=== PATIENT | male | born 1955 | race Caucasian/White ===

== ENCOUNTER 2020-12-20 05:27 | Observation (INO) ==
--- NOTE | 2020-12-05 11:19 | PAT Medication Instructions ---
Medication Instructions Date of Service December 05, 2020 Home Medications Medication Instructions Recorded tramadol 50 mg tablet 50 mg PO Q6H PRN #30 tab 12/01/20 tramadol 50 mg tablet 50 mg PO Q6H PRN ascorbic acid (vitamin C) 1,000 mg tablet (Vitamin C) 1 g PO QAM aspirin 81 mg tablet 81 mg PO QAM atorvastatin 80 mg tablet 80 mg PO HS cholecalciferol (vitamin D3) 50 mcg (2,000 unit) tablet (Vitamin D3) 50 mcg PO QAM meloxicam 15 mg tablet 15 mg PO QPM PRN multivitamin 1 tab PO QAM nitroglycerin 0.4 mg sublingual tablet 0.4 mg SUBLINGUAL UD PRN omeprazole 20 mg tablet,delayed release 20 mg PO QAM Continue as directed nitroglycerin 0.4 mg sublingual tablet 0.4 mg SUBLINGUAL UD PRN (if needed) ASK your surgeon for instructions meloxicam 15 mg tablet 15 mg PO QPM PRN DO NOT take the morning of surgery ascorbic acid (vitamin C) 1,000 mg tablet (Vitamin C) 1 g PO QAM cholecalciferol (vitamin D3) 50 mcg (2,000 unit) tablet (Vitamin D3) 50 mcg PO QAM multivitamin 1 tab PO QAM Take morning of surgery With a small sip of water, OTHERWISE NOTHING TO EAT OR DRINK AFTER MIDNIGHT: tramadol 50 mg tablet 50 mg PO Q6H PRN (okay to take up to 4 hours prior to surgery if needed) aspirin 81 mg tablet 81 mg PO QAM (continue as normal unless told otherwise by surgeon) omeprazole 20 mg tablet,delayed release 20 mg PO QAM Take evening before surgery tramadol 50 mg tablet 50 mg PO Q6H PRN (if needed) atorvastatin 80 mg tablet 80 mg PO HS Other Notes If you have any questions please call us at [phone] or [phone] or [phone] or [phone]
--- NOTE | 2020-12-09 12:06 | Anesthesiology Consultation ---
Date of Service December 09, 2020 Assessment & Plan (1) Encounter for pre-operative examination: COVID screening: Per assessment on 12/09: Travel screen negative, no known COVID- 19 positive contacts or current COVID-19 related symptoms. Patient vaccinated. Surgeon arranging preop COVID testing. Awaiting results. Chart Review Chart Review: Acceptable Risk for Surgery (pending most recent cardiology office visit note) and Patient seen in Pre Admission Testing Teaching & Discussion Pre-Anesthesia Teaching/Discussion Notes: Instructed NPO after midnight before surgery,except medications with 15 cc of water. Medication instructions provided according to the PAT guidelines. History Surgery Operation Date: 12/20/20 10:40 Proposed Procedures p Right Total Hip Arthroplasty - Venkata Holcomb MD Height/Weight Height: 5 ft 10 in Weight: 99.5 kg Allergies Allergy/AdvReac Type Severity Reaction Status Date / Time No Known Allergies Allergy Verified 12/05/20 10:20 Medications Home Medications Medication Instructions Recorded Confirmed Last Taken tramadol 50 mg tablet 50 mg PO Q6H PRN #30 tab 12/01/20 12/05/20 Unknown ascorbic acid (vitamin C) 1,000 mg 1 g PO QAM 12/05/20 12/05/20 Unknown tablet (Vitamin C) aspirin 81 mg tablet 81 mg PO QAM 12/05/20 12/05/20 Unknown atorvastatin 80 mg tablet 80 mg PO HS 12/05/20 12/05/20 Unknown cholecalciferol (vitamin D3) 50 50 mcg PO QAM 12/05/20 12/05/20 Unknown mcg (2,000 unit) tablet (Vitamin D3) meloxicam 15 mg tablet 15 mg PO QPM PRN 12/05/20 12/05/20 Unknown multivitamin 1 tab PO QAM 12/05/20 12/05/20 Unknown nitroglycerin 0.4 mg sublingual 0.4 mg SUBLINGUAL UD PRN 12/05/20 12/05/20 Unknown tablet omeprazole 20 mg tablet,delayed 20 mg PO QAM 12/05/20 12/05/20 Unknown release Past Medical History Medical History BPH (benign prostatic hyperplasia) CAD (coronary artery disease) 3 stents total (LAD x2, diagonal x1) ~2012 Degenerative joint disease of right hip GERD (gastroesophageal reflux disease) Controlled Hyperlipidemia Kidney stones Osteoarthritis Exercise / Class Metabolic Activity II 4-5 Yardwork/Stairs/Walk up hill (one FS (no CP, no SOB)) Past Family History Family History Other No family history of adverse response to anesthesia Past Surgical History Surgical History H/O hemorrhoidectomy History of arthroplasty of left hip History of cardiac cath History of colonoscopy History of heart artery stent x3 stents total (LAD x2, diagonal x1) ~2012 Hx of umbilical hernia repair S/P T&A (status post tonsillectomy and adenoidectomy) S/P trigger finger release right middle finger & left ring finger S/P TURP Past Anesthesia History No Hx of Anesthesia Complications and No Family Hx of Anesthesia Complications History of PONV No Hx of PONV and No Hx of Motion Sickness Social History Smoking Status: Never smoker Do You Dip or Chew Tobacco: No Hx Alcohol Use: Yes alcohol intake frequency: a few times a month Hx Substance Use: No substance use type: does not use Review of Systems Patient denies chest pain, shortness of breath, dyspnea on exertion, reflux, cough, wheezing, palpitations. Physical Exam Vital Signs VITALS BP 126/81 P 64 TEMP 98.4 SP02 95%RA RESP 18 PHYSICAL Full cervical extension range of motion. Full TMJ range of motion. TMD 4 finger breaths Mallampati Score 3 Dentition: intact, + gold onlays, + veneers (including bottom front) Lungs: clear throughout to auscultation Cardiac: regular rate and rhythm, no murmurs noted Spine: normal Carotid arteries: negative bruit Extremities: no edema Lab Results Anesthesia Preop Results Results Anesthesia Widget: WBC 10.29 K/uL (4.8-10.8) 12/09/20 Hgb 14.9 g/dL (14.0-18.0) 12/09/20 Hct 43.2 % (42-52) 12/09/20 Plt 283 K/uL (130-400) 12/09/20 Na 141 mmol/L (136-145) 12/09/20 K 3.9 mmol/L (3.5-5.1) 12/09/20 Cl 108 mmol/L (98-107) H 12/09/20 CO2 26 mmol/L (21-32) 12/09/20 BUN 10 mg/dl (7-18) 12/09/20 Creat 0.65 mg/dl (0.6-1.4) 12/09/20 Glucose Level 91 mg/dl (70-99) 12/09/20 PT 10.9 Seconds (9.0-12.0) 12/09/20 PTT 27.6 Seconds (21.0-31.0) 12/09/20 INR 1.1 (0.9-1.1) 12/09/20 Blood Type O Positive 12/09/20 Antibody Screen NEGATIVE 12/09/20 Testing Electrocardiogram Date: 12/09/20 NSR at 64bpm. unconfirmed report. Chest X-Ray Date: 12/09/20 Findings: + NAD Echocardiogram Date: 09/19/20 EF 55 to 60%. Grade 1 diastolic dysfunction. Thickened aortic/mitral valve. Borderline LVH. No significant valvular disease.
[2020-12-20] MEDS ORDERED: Scopolamine 1 MG TDSY TD SCH (06:00)
[2020-12-20] MEDS ORDERED: ACETAMINOPHEN 500 MG TAB PO SCH (06:00)
[2020-12-20] MEDS ORDERED: ceFAZolin 2000MG 2,000 MG/15 ML SYR IV SCH (06:00)
[2020-12-20] MEDS ORDERED: LR 500ML BOLUS, THEN 15ML/HR IV SCH (06:00)
[2020-12-20] MEDS ORDERED: METOCLOPRAMIDE HCL 10 MG TABLET PO SCH (06:00)
[2020-12-20] MEDS ORDERED: LR 60ML/HR IV SCH (06:00)
[2020-12-20] MEDS ORDERED: GABAPENTIN 300 MG CAP PO SCH (06:00)
[2020-12-20] MEDS ORDERED: FAMOTIDINE 20 MG TAB PO SCH (06:00)
[2020-12-20] MEDS ORDERED: TRANEXAMIC ACID 1,000 MG **IV Pre-op IV SCH (06:00)
[2020-12-20] MEDS ORDERED: BUPIVACAINE 0.5 % 5 MG/1 ML PF 10ML VIAL ONE (06:23)
[2020-12-20] MEDS ORDERED: BUPIVACAINE 0.5 % 5 MG/1 ML MPF 30ML VIAL ONE (06:34)
[2020-12-20] MEDS ORDERED: EPINEPHrine INJ 1 MG/ML AMP ONE (06:34)
[2020-12-20] MEDS ORDERED: fentaNYL citrate 100 MCG/2 ML VIAL ONE (06:37)
[2020-12-20] MEDS ORDERED: MIDAZOLAM HCL 1 MG/ML 2ML VIAL ONE ×2 (06:37→07:16)
[2020-12-20] MEDS ORDERED: MoRPHine SULFATE PF 1 MG/ML 10 ML AMP/VIAL ONE (06:44)
--- NOTE | 2020-12-20 06:53 | History & Physical Bridge Note ---
Date of Service December 20, 2020 History & Physical Bridge Note I have examined the patient, reviewed the History & Physical and in the interval since the performance of the History & Physical I have noted the following changes of clinical significance: no changes noted
[2020-12-20] MEDS ORDERED: ePHEDrine sulfate 50 MG/ML AMP IV PRN ×2 (06:54→07:01)
[2020-12-20] MEDS ORDERED: fentaNYL citrate 100 MCG/2 ML VIAL IV PRN (06:54)
[2020-12-20] MEDS ORDERED: ATROPINE SULFATE 0.1 MG/ML 10ML SYR IV PRN (06:54)
[2020-12-20] MEDS ORDERED: HYDROmorphone INJ 2 MG/ML SYR/VIAL IV PRN (06:54)
[2020-12-20] MEDS ORDERED: ONDANSETRON INJ 2 MG/ML 2 ML VIAL IV PRN ×2 (06:54→07:01)
[2020-12-20] MEDS ORDERED: MoRPHine SULFATE 2 MG/ML CARP IV PRN (07:01)
[2020-12-20] MEDS ORDERED: MoRPHine SULFATE PF 1 MG/ML 10 ML AMP/VIAL INT SPINAL ONE (07:01)
[2020-12-20] MEDS ORDERED: NALBUPHINE HCL INJ 10 MG/ML AMP IV PRN (07:01)
[2020-12-20] MEDS ORDERED: NALOXONE HCL 1 MG in SODIUM CHLORIDE 0.9% 1000ML 1,000 ML IV PRN (07:01)
[2020-12-20] MEDS ORDERED: LACTATED RINGER'S 500 ML IV PRN (07:01)
[2020-12-20] MEDS ORDERED: diphenhydrAMINE 50 MG/ML VIAL IV PRN (07:01)
[2020-12-20] MEDS ORDERED: NALOXONE HCL 0.08 MG in SYRINGE 1.8 ML IV PRN (07:01)
[2020-12-20] MEDS ORDERED: NALOXONE HCL 0.4 MG/1 ML VIAL/CARP IV PRN (07:01)
[2020-12-20] MEDS ORDERED: ONDANSETRON INJ 2 MG/ML 2 ML VIAL ONE (07:13)
[2020-12-20] MEDS ORDERED: PROPOFOL IV EMULSION 10 MG/ML 20 ML VIAL IV ONE (07:13)
[2020-12-20] MEDS ORDERED: LIDOCAINE 2% 2 ML VIAL/AMP(20MG/ML) INFIL ONE (07:13)
[2020-12-20] MEDS ORDERED: SODIUM CHLORIDE 0.9% 1000ML 1,000 ML IV SCH (07:15)
[2020-12-20] MEDS ORDERED: NO NARCOTICS OR SEDATIVES SCH (07:15)
[2020-12-20] MEDS ORDERED: PHENYLEPHRINE 100MCG/ML 5ML SYR ONE (08:30)
--- NOTE | 2020-12-20 08:51 | Operative Report ---
Post Operative Report Pre & Post Diagnosis Operation Date: 12/20/20 07:00 Pre-Op Diagnosis: Right Hip Advanced Degenerative Joint Disease Post-Op Diagnosis: Right Hip Advanced Degenerative Joint Disease I identified the patient and participated in the time-out.: Yes Procedure Operation Date: 12/20/20 07:00 Actual Procedures p Right Total Hip Arthroplasty--Uncemented(Right) - Venkata Holcomb MD Surgeon Venkata Holcomb MD Candle Cutter HARRIS Fairbanks Estimated Blood Loss 200 Findings Consistent with Post-Op Diagnosis Operative findings revealed fairly advanced focal right hip DJD. He did have some grade 4 disease of the femoral head. They had a moderate-sized joint effusion. A very valgus angle to his femoral neck with some underlying dysplasia along with some increased anteversion of the femoral neck about 30 degrees. Fluids 1100 cc Specimens Right femoral head sent for pathology. Drains None Anesthesia Type Spinal MAC Complications none Disposition Accompanied Patient To Recovery: Yes Indications Patient is a 65-year-old gentleman has had about a 7-month history of progressively increasing right hip pain but is become more debilitating over time. He had similar episode five or 6 years ago which was eventually led to a left hip replacement. He been through extensive conservative treatment occ luding multiple different medicines as well as intra-articular hip joint injection which helped him for about a week or so. X-ray showed fairly mild arthritis but MRI was positive for a significant bone marrow edema and progression of his hip arthritis over time. He had edema on both sides of the joint. Patient failed conservative measures and would like to proceed with total hip arthroplasty. We did have him evaluated by our sports medicine hip arthroscopist and he didn't think there was any chance that he would help him with hip arthroscopy. Description of Procedure Operative implants consist of: 1. Biomet G7 size 54 mm acetabular shell. 2. 6.5 cancellous acetabular screws 135 mm length by 25 mm length. 3. [place] hole senior research fellow. 4. Highly cross-linked polyethylene liner with a 54 mm outer diameter, 36 mm inner diameter. 5. Depuy Corail size nine short neck 125 degree angle femoral stem. 6. +5/36 mm ceramic articular ball. The patient was taken to the operating, identified, placed on the operating table supine position but all contractors were properly padded. IV antibiotics tried by anesthesia team. A spinal anesthetic been implemented in the holding area. Esquivel catheter was placed in sterile fashion. The patient then placed in the left lateral decubitus position. Axillary roll was placed. A Stulberg hip positioner was used for positioning. The right hip and leg were then prepped and draped in usual sterile fashion. A posterior lateral approach to the right hip was then performed to look curvilinear incision centered over the greater trochanter. Sharp dissection was carried through subcutaneous this down to the IT band gluteal fascia the IT band gluteal fascia incised longitudinally in line with skin incision. The underlying greater bursa was excised. The piriformis and external rotators were then tagged and taken off the posterior aspect hip joint capsule. Great care was taken throughout the procedure protect the sciatic nerve at all times. Posterior capsulotomy was then performed leaving a flap for later repair. Hip was internally rotated and dislocated. The hip was then assessed and cleaned of all soft tissues. The femoral neck osteotomy cut was then made with Final Cut about 15 mm above the lesser trochanter. He did have quite a valgus angle to his femoral neck with increased femoral anteversion. The femoral head was removed and sent for pathology. The femur was retracted anteriorly. Attention drawn the acetabulum. The acetabular labrum was excised. Was very hypertrophied and thickened. The pulmonary fat was excised. Sequential reaming the acetabular was then performed beginning with a size 43 and progressing up to 53. I did reamed a little bit with a 54 reamer and then placed a 54 mm cup in about 40 degrees lateral opening and 20 degrees of anteversion. It was fixed with two 6.5 cancellous acetabular screws. Trial liner was placed. Small small anterior osteophytes removed. Attention drawn the femur. The proximal femur was entered with a cookie-cutter followed by canal finder. Then broached to a size 8 broach and progressing up to nine. He had a very good cancellous bone envelope and we got good fit at nine. I elected not to broach further due to his underlying dysplasia. We then trialed the hip. We trialed different neck options and I elected to use the 125 angle short neck as it provided optimal stability, appropriate soft tissue tension and appropriate leg lengths. Attention drawn to place the permanent components. Nupathe all trial components removed. An apex hole senior research fellow was placed. Highly cross-linked polyethylene liner was placed. A DePuy size nine short neck 125 degree angle femoral stem was impacted in position. A +5/36 mm ceramic articular ball was placed. Hip was located once again found to be stable. Attention drawn toward closing. Wounds irrigated scope soft pulsatile lavage solution. I did inject locally with 60 cc of half percent Marcaine with epinephrine. The posterior capsule and external rotators then repaired through drill holes in the posterior trochanter with #2 Tycron suture. The IT band gluteal fascia then closed with two layers of the deep layer #1 Vicryl suture and subcutaneous tissues with 2-0 Dexon suture in a buried interrupted fashion the skin was closed skin precious. Leg was then cleaned and dried a sterile dressing both Xeroform, 4 x 4's, sterile ABD pad, foam tape was applied. Patient then transferred to the recovery room in stable condition. Patient tolerated procedure well and there were no complications. Gregg Fairbanks, my physician medical services assistant, was present for the entire procedure. His assistance was essential and required for appropriate patient positioning, prep ping and draping, surgical exposure, performing the technical details of the operation, placement the implants, closure of the wound, and placement of the sterile bandage. I attest to the content of the Intraoperative Record and any orders documented therein. Any exceptions are noted below.
--- NOTE | 2020-12-20 09:13 | XRay Report ---
SINGLE VIEW PELVIS; SINGLE VIEW RIGHT HIP CLINICAL HISTORY: Postoperative examination. FINDINGS: AP views of the hips and pelvis with a crosstable lateral portable view of the right hip ar e obtained. A bipolar right hip arthroplasty is in near-anatomic alignment. At least 2 cortical lag screws transfix the acetabular cup. No acute fracture is identified. There are expected postoperative changes overlying the right hip including skin clips, subcutaneous gas, and soft tissue swelling. A left hip arthroplasty is in place. IMPRESSION: Expected postoperative findings status post right hip arthroplasty. No acute fracture is seen. ACT 112: Negative or not required by law. Electronically signed by: Jt Sanders M.D. 12/20/2020 9:12 AM
[2020-12-20] MEDS ORDERED: ALUMINUM/MAGNESIUM SUSP 30 ML UDC PO PRN (09:37)
[2020-12-20] MEDS ORDERED: NON-FORMULARY MEDICATION (Ascorbic Acid (Vitamin C) [Vitamin C] 1,000 mg Tablet) PO SCH (09:37)
[2020-12-20] MEDS ORDERED: NITROGLYCERIN SL 0.4 MG/TAB TAB SL PRN (09:37)
[2020-12-20] MEDS ORDERED: MAGNESIUM HYDROXIDE SUSP 30 ML UDC PO PRN (09:37)
[2020-12-20] MEDS ORDERED: MULTIVITAMIN TAB PO SCH (09:37)
[2020-12-20] MEDS ORDERED: NON-FORMULARY MEDICATION (Amino Acids [Amino Acid] Capsule) PO SCH (09:37)
[2020-12-20] MEDS ORDERED: TAMSULOSIN HCL 0.4 MG CAP PO PRN (09:37)
[2020-12-20] MEDS ORDERED: bisacodyL 10 MG SUPP PR PRN (09:37)
--- NOTE | 2020-12-20 09:48 | Anesthesiology Progress Note ---
Date of Service December 20, 2020 Anesthesia Post Procedure Vital Signs Vital Signs: Temp Pulse Pulse Resp BP Pulse Ox 12/20/20 09:20 36.6 C 69 20 111/70 94 12/20/20 09:10 74 13 119/73 94 12/20/20 09:00 74 20 117/63 98 12/20/20 08:50 75 13 113/63 99 12/20/20 08:41 37.4 C 79 18 112/64 97 12/20/20 05:48 37 C 78 20 157/87 H 95 Pain Intensity Right Hip: Pain Intensity: 4 Transfer of Care Handoff Completed per policy Notes Mental Status: alert / awake / arousable and participated in evaluation Patient Amnestic to Procedure: Yes Nausea / Vomiting: adequately controlled Pain: adequately controlled Airway Patency, RR, SpO2: stable & adequate BP & HR: stable & adequate Hydration State: stable & adequate Anesthetic Complications: no major complications apparent and Pt Satisfied with anesthetic care
[2020-12-20] MEDS: SODIUM CHLORIDE 0.9% 1000ML 1,000 ML IV SCH ×2 (10:25→20:40)
[2020-12-20] MEDS: PANTOprazole 40 MG TAB PO SCH (11:33)
[2020-12-20] MEDS: ASPIRIN 81 MG ECTAB PO SCH ×2 (11:34→20:41)
[2020-12-20] MEDS: DOCUSATE SODIUM 100 MG CAP PO SCH ×2 (11:34→20:42)
[2020-12-20] MEDS: MULTIVITAMIN TAB PO SCH (11:34)
[2020-12-20] MEDS: KETOROLAC TROMETHAMINE 15 MG/ML VIAL IV SCH ×3 (11:34→21:40)
[2020-12-20] MEDS: CHOLECALCIFEROL 1,000 UNITS 25 MCG TAB PO SCH (11:35)
--- NOTE | 2020-12-20 13:37 | Progress Notes ---
DATE OF SERVICE: 12/20/2020 SUBJECTIVE: A 65-year-old gentleman postop from right hip replacement. He is doing well. Not havin g any pain yet. No chest pain or shortness of breath. Not feeling dizzy or lightheaded. OBJECTIVE: VITAL SIGNS: Temperature is 36.7. Vital signs are stable. PHYSICAL EXAMINATION: GENERAL: Shows a pleasant middle-aged male. He is sitting up in bed, looks quite comfortable. LUNGS: Clear to auscultation. HEART: Has a regular rate and rhythm. ABDOMEN: Soft, nontender, nondistended. EXTREMITIES: Grossly neurovascularly intact except as follows: Examination of the right leg reveals the leg lengths are equal. Hip is located. Thigh is soft and supple. Dressing is clean, dry and i ntact. He can dorsiflex and plantarflex his foot appropriately. X-RAYS: X-rays of the right hip from today are reviewed. These are from the recovery room. It shows a right uncemented total hip arthroplasty. Components looked to be in good position. No signs of p roblems. ASSESSMENT: A 65-year-old gentleman postoperative from right hip replacement, doing well. Pain is c ontrolled. Hip is located. He is neurologically intact. PLAN: 1. DVT prophylaxis includes thigh-high TEDs, SCDs, and aspirin twice a day. 2. PT, OT, weightbear as tolerated. Right total hip protocol. 3. Pain control, doing pretty well with current pain regimen. 4. IV antibiotics x24 hours. 5. Disposition: Plan to discharge to home with some home health once adequately recovered and medic ally stable and does okay in therapy. Job ID: [id number]
[2020-12-20] MEDS: ACETAMINOPHEN 500 MG TAB PO SCH ×2 (13:58→21:40)
[2020-12-20] MEDS ORDERED: TRANEXAMIC ACID / 0.7% NACL 1,000 MG/100 ML BAG IV SCH (14:45)
[2020-12-20] MEDS: ceFAZolin 2000MG 2,000 MG/15 ML SYR IV SCH ×2 (15:04→21:40)
[2020-12-20] MEDS ORDERED: Scopolamine CHECK PATCH PLACEMENT SCH (16:00)
[2020-12-20] MEDS: ASCORBIC ACID 500 MG TAB PO SCH (16:45)
[2020-12-20] MEDS ORDERED: SENNA 8.6 MG TAB PO SCH (21:00)
[2020-12-20] MEDS ORDERED: ATORVASTATIN 40 MG TAB PO SCH (21:00)
[2020-12-21] MEDS ORDERED: DC INTRASPINAL MORPHINE ONE (01:01)
[2020-12-21] MEDS ORDERED: diphenhydrAMINE Capsule 25 MG CAP PO PRN (01:02)
[2020-12-21] MEDS ORDERED: traMADol HCL 50 MG TABLET PO PRN (01:02)
[2020-12-21] MEDS ORDERED: METOCLOPRAMIDE HCL INJ 5 MG/ML 2 ML VIAL IV PRN (01:02)
[2020-12-21] MEDS ORDERED: HYDROmorphone INJ 0.5 MG/0.5 ML SYR IV PRN (01:02)
[2020-12-21] MEDS ORDERED: NALOXONE HCL 0.4 MG/1 ML VIAL/CARP IV PRN (01:02)
[2020-12-21] MEDS ORDERED: ONDANSETRON INJ 2 MG/ML 2 ML VIAL IV PRN (01:02)
[2020-12-21] MEDS: KETOROLAC TROMETHAMINE 15 MG/ML VIAL IV SCH ×2 (05:38→11:16)
[2020-12-21] MEDS: ACETAMINOPHEN 500 MG TAB PO SCH (05:39)
[2020-12-21] MEDS: SODIUM CHLORIDE 0.9% 1000ML 1,000 ML IV SCH (05:48)
[2020-12-21 06:38] LABS: Basophils # (auto) 0.03 K/uL (0-0.2); Basophils % (auto) 0.2 %; Eosinophils # (auto) 0.21 K/uL (0-0.5); Eosinophils % (auto) 1.6 %; Hematocrit (blood only) 36.7 % (42-52); Hemoglobin 12.6 g/dL (14.0-18.0); Immature Granulocytes # (auto) 0.04 K/uL (0.00-0.02); Immature Granulocytes % (auto) 0.3 %; Lymphocytes # (auto) 2.34 K/uL (1.2-3.4); Lymphocytes % (auto) 18.1 %; Mean Corpuscular Hemoglobin 31.9 pg (25-34); Mean Corpuscular Hgb Conc 34.3 g/dL (32-36); Mean Corpuscular Volume 92.9 fL (80-100); Mean Platelet Volume 9.9 fL (7.4-10.4); Monocytes # (auto) 1.88 K/uL (0.11-0.59); Monocytes % (auto) 14.6 %; Neutrophils % (auto) 65.2 %; Platelet Count 230 K/uL (130-400); RDW Coefficient of Variation 13.1 % (11.5-14.5); RDW Standard Deviation 44.5 fL (36.4-46.3); Red Blood Count 3.95 M/uL (4.7-6.1)
[2020-12-21 07:06] LABS: BUN Creatinine Ratio 17.9 (10-20); Calcium 8.1 mg/dl (8.5-10.1); Creatinine Clr Calc Pharmacy 149.6 ml/min; Potassium 3.7 mmol/L (3.5-5.1)
[2020-12-21] MEDS ORDERED: dexAMETHasone 10 MG in SYRINGE 0 ML IV SCH (08:00)
[2020-12-21] MEDS: ASCORBIC ACID 500 MG TAB PO SCH (08:26)
[2020-12-21] MEDS: DOCUSATE SODIUM 100 MG CAP PO SCH (08:26)
[2020-12-21] MEDS: MULTIVITAMIN TAB PO SCH (08:26)
[2020-12-21] MEDS: ASPIRIN 81 MG ECTAB PO SCH (08:26)
[2020-12-21] MEDS: CHOLECALCIFEROL 1,000 UNITS 25 MCG TAB PO SCH (08:27)
[2020-12-21] MEDS: PANTOprazole 40 MG TAB PO SCH (08:28)
--- NOTE | 2020-12-21 14:06 | Progress Notes ---
DATE OF SERVICE: 12/21/2020 SUBJECTIVE: A 65-year-old gentleman postop day 1 from right hip replacement. He is doing well. The rapy went well. His pain is controlled. Ready to go home. OBJECTIVE: VITAL SIGNS: Temperature is 36.8. Vital signs are stable. PHYSICAL EXAMINATION: GENERAL: Shows a pleasant middle-aged male. Sitting up in his bedside chair, looks comfortable. EXTREMITIES: Examination of the right hip and leg reveals leg lengths to be equal. Dressing is sandeep n, dry and intact. Thigh is soft and supple. He is neurologically intact. He can dorsiflex and keren ntarflex his foot appropriately. LABORATORY DATA: Hemoglobin 12.6. Hematocrit 36.7. White cell count 12.90. Electrolytes are stabl e. ASSESSMENT: A 65-year-old gentleman postoperative day 1 from right hip replacement, doing well. His pain is controlled. He is neurologically intact. Hip is located. PLAN: 1. DVT prophylaxis includes thigh-high TEDs, SCDs, and aspirin twice a day. 2. PT, OT, weightbear as tolerated. Right total hip protocol. 3. Pain control, doing well with current pain regimen. 4. Disposition: Plan to discharge to home with some home health today. Job ID: [id number]
--- NOTE | 2020-12-27 06:45 | Discharge Summary ---
Date of Service December 27, 2020 Discharge Data Procedures Performed Operation Date: 12/20/20 07:00 Actual Procedures p Right Total Hip Arthroplasty--Uncemented(Right) - Venkata Holcomb MD Hospital Course (1) Status post total hip replacement, right: This is a 65 year old patient admitted on 12/20/20 and underwent total hip arthroplasty. He tolerated the procedure well and there were no complications. Transferred to the PACU post op and later to the orthopedic floor for further care. He was given ancef for antibiotic prophylaxis. He was also given URBANO stockings, SCDs, and aspirin for DVT prophylaxis. Hemoglobin, hematocrit, and vital signs were monitored during his hospital stay and remained stable. Did not require any blood transfusions. There were no complications during his hospital stay. By post op day #1 the patient was tolerating a vegetarian diet, pain was reasonably controlled with oral pain medicine, and he was participating in physical therapy. On post op day #1 the patient was discharged home and set up with home health care. He was given printed discharge instructions including prescriptions for extra strength tylenol, aspirin, and tramadol. Continue physical therapy, weight bearing as tolerated. Continue hip precautions. Continue URBANO stockings. Follow up approximately 2 weeks post op or sooner if there are problems or concerns. Coding Level of Care Code None Diagnoses Status post total hip replacement, right Z96.641
== END 2020-12-21 13:43 | disposition home health service (06) ==
LOC: 3E 05:27 → ASU 05:27
DX: E78.00 Pure hypercholesterolemia, unspecified; K21.9 Gastro-esophageal reflux disease without esophagitis; I25.10 Atherosclerotic heart disease of native coronary artery without angina pectoris; Z79.899 Other long term (current) drug therapy; Z79.82 Long term (current) use of aspirin; Z95.5 Presence of coronary angioplasty implant and graft; G47.30 Sleep apnea, unspecified; M16.11 Unilateral primary osteoarthritis, right hip; Z96.642 Presence of left artificial hip joint